=== PATIENT | female | born 1985 | race Caucasian/White ===

== ENCOUNTER 2022-03-24 05:05 | Emergency (ER) | payer MEDICAID, OTHER ==
[~2022-03-24] VITALS: Ht 157.5 cm; Wt 82.0 kg
[2022-03-24 05:08] VITALS: BP 142/94
[2022-03-24] MEDS ORDERED: ACETAMINOPHEN 325MG TABLET PO STA (06:09)
[2022-03-24] MEDS ORDERED: BACITRACIN ZINC OINT UDPKT TOP ONE (06:15)
[2022-03-24] MEDS ORDERED: LIDOCAINE HCL/PF 1% 10 MG/ML 5ML VIAL INFIL ONE (06:15)
[2022-03-24] MEDS ORDERED: TETANUS, DIPHTHERIA, PERTUSSIS VAC/PF 0.5ML (>10YR OLD) IM ONE ×2 (06:15→08:00)
[2022-03-24] MEDS ORDERED: IBUP-2028 MT (07:20)
== END 2022-03-24 08:03 | disposition home or self-care (01) ==
LOC: ER 05:22
DX: S01.81XA Laceration without foreign body of other part of head, initial encounter (principal); Y08.89XA Assault by other specified means, initial encounter; Y93.89 Activity, other specified; Y92.89 Other specified places as the place of occurrence of the external cause; Y99.8 Other external cause status; M54.6 Pain in thoracic spine
CPT/HCPCS: 12013; 70450; 70486; 71045; 81025; 90471; 90715; 99284; J3490; Z7610